=== PATIENT | female | born 1995 | race Caucasian/White ===

== ENCOUNTER 2021-03-02 14:21 | Emergency (ER) | payer BC ==
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
[2021-03-02 16:39] LABS: Appearance,Urine Clear (Clear); Bilirubin,Urine Negative (Negative); Blood,Urine Negative (Negative); Color,Urine Light Yellow; Glucose,Urine (UA) Negative (Negative); Ketones,Urine Negative (Negative); Leukocyte Esterase,Urine Negative (Negative); Nitrite,Urine Negative (Negative); Protein,Urine Negative (Negative); Specific Gravity,Urine 1.005 (1.001-1.035); Urobilinogen,Urine <2.0 mg/dL (<2.0)
[2021-03-02 17:01] VITALS: BP 108/77; PULSE 81; RESP 20; TEMP 98.3
== END 2021-03-02 17:16 | disposition home or self-care (01) ==
LOC: EC 14:21
DX: O9A.212 Injury, poisoning and certain other consequences of external causes complicating pregnancy, second trimester (principal); T75.4XXA Electrocution, initial encounter; W86.8XXA Exposure to other electric current, initial encounter; Z3A.17 17 weeks gestation of pregnancy
CPT/HCPCS: 76815; 81003; 93005; 99284

== ENCOUNTER 2021-08-04 10:08 | Inpatient (IN) | payer BC ==
[2021-08-04] MEDS ORDERED: LACTATED RINGERS 1,000 ML IV ONE (10:39)
[2021-08-04] MEDS ORDERED: CITRIC ACID-SODIUM CITRATE 15 ML CUP PO ONE (10:45)
[2021-08-04] MEDS ORDERED: ceFAZolin 3 GM in SODIUM CHLORIDE 0.9% 100 ML IVPB ONE (10:45)
[2021-08-04 10:53] LABS: Basophils % (A) 0 %; Eosinophils # (A) 0.1 k/uL (0-0.7); Eosinophils % (A) 2 %; HCT 34.2 % (34.0-46.0); HGB 11.9 gm/dL (11.4-16.0); Lymphocytes # (A) 1.2 k/uL (1.0-4.8); Lymphocytes % (A) 19 %; MCH 31.1 pg (25.0-35.0); MCHC 34.7 g/dL (31.0-37.0); MCV 89.5 fL (80.0-100.0); Mean Platelet Volume 9.8; Monocytes # (A) 0.3 k/uL (0-1.0); Monocytes % (A) 5 %; Neutrophils # (A) 4.7 k/uL (1.3-7.7); Neutrophils % (A) 73 %; Platelet Count 135 k/uL (150-450); RBC 3.82 m/uL (3.80-5.40); RDW 14.9 % (11.5-15.5); WBC 6.4 k/uL (3.8-10.6)
[2021-08-04] MEDS: LACTATED RINGERS 1,000 ML IV SCH ×5 (11:27→23:02)
[2021-08-04] MEDS ORDERED: NALBUPHINE 10 MG/ML (1 ML AMP) ONE (12:10)
[2021-08-04] MEDS ORDERED: ePHEDrine 50 MG/ML 1 ML AMP ONE (12:10)
[2021-08-04] MEDS ORDERED: ONDANSETRON 4 MG/2 ML VIAL ONE (12:10)
[2021-08-04] MEDS ORDERED: MORPHINE SULFATE (PF) 0.3 MG/0.3 ML SYR ONE (12:10)
[2021-08-04] MEDS ORDERED: OXYTOCIN 30 UNITS/500 ML NS BAG IV ONE (12:10)
[2021-08-04] MEDS ORDERED: KETOROLAC 15 MG/ML 1 ML VIAL ONE (12:10)
[2021-08-04] MEDS ORDERED: NALBUPHINE 10 MG/ML (1 ML AMP) IV PRN (12:39)
[2021-08-04] MEDS ORDERED: ONDANSETRON 4 MG/2 ML VIAL IVP PRN ×2 (12:39→13:15)
[2021-08-04] MEDS ORDERED: KETOROLAC 15 MG/ML 1 ML VIAL IVP PRN (12:39)
[2021-08-04] MEDS ORDERED: diphenhydrAMINE 50 MG/ML 1 ML VIAL IVP PRN ×3 (12:39→13:15)
[2021-08-04] MEDS ORDERED: MORPHINE SULFATE 2 MG/ML SYRINGE IVP PRN (12:39)
[2021-08-04] MEDS ORDERED: NALOXONE 0.4 MG/ML 1 ML VIAL IV PRN (12:39)
[2021-08-04] MEDS ORDERED: HYDROmorphone 2 MG TAB PO PRN ×2 (13:15)
[2021-08-04] MEDS ORDERED: KETOROLAC 30 MG/ML 1 ML VIAL IVP PRN (13:15)
[2021-08-04] MEDS ORDERED: LANOLIN CREAM 5 GM TUBE TOPICAL PRN (13:15)
[2021-08-04] MEDS ORDERED: SIMETHICONE 80 MG CHEWABLE PO PRN (13:15)
[2021-08-04] MEDS ORDERED: diphenhydrAMINE 25 MG CAP PO PRN (13:15)
[2021-08-04] MEDS ORDERED: OXYTOCIN 30 UNITS/500 ML NS 30 UNIT in SALINE 1 500ML.BAG IV SCH (13:15)
[2021-08-04] MEDS ORDERED: diphenhydrAMINE 50 MG CAP PO PRN (13:15)
[2021-08-04] MEDS ORDERED: ZOLPIDEM 5 MG TAB PO PRN (13:15)
[2021-08-04] MEDS ORDERED: METOCLOPRAMIDE 5 MG/ML 2 ML VIAL IVP PRN (13:15)
--- NOTE | 2021-08-04 13:23 | P.HPOB ---
History of Present Illness H&P Date: 08/04/21 Chief Complaint: 39-0/7 weeks, gestational diabetes, macrosomia the patient is a 25-year-old 1 para 0 admitted at 39-0/7 weeks as established by last menstrual period and confirmed by 12 week ultrasound. She is admitted for primary low-transverse section secondary to a diagnosis of gestational diabetes which her sugars been well controlled and testing has been reassuring. She was in the third trimester found to have a fetus growing at greater than the 90th percentile with an estimated weight greater than 4000 g approximately 1-1-1/2 weeks ago. Giving the statistics for potential shoulder dystocia or maternal injury as well, the decision was made to proceed with primary low-transverse section. Her was otherwise essentially uncomplicated aside from the gestational diabetes. At her initial anatomy ultrasound, there was a concern for possible ventricular septal defect which was not seen at echocardiogram. On labor and delivery, all signs reassuring with a category 1 heart rate tracing. Group B strep status is negative. Obstetrical history: 1 para 0 current statistics listed in history of present illness. EDC of 08/11/2021 was established by last menstrual period and confirmed by 12 week ultrasound. Laboratory workup demonstrates a blood type of B+ with a negative antibody screen. Rubella status is immune. The remainder of laboratory workup was within normal limits. Early Glucola was elevated and followed by an abnormal 3 hour glucose tolerance tests making the diagnosis of diabetes. Group B strep status is negative. Gynecologic history: Unremarkable with no history of any infections to include STDs. Review of Systems review of systems is confined to history of present illness. Past Medical History Past Medical History: No Reported History Additional Past Medical History / Comment(s): Gestational diabetes History of Any Multi-Drug Resistant Organisms: None Reported Past Surgical History: Tonsillectomy Past Anesthesia/Blood Transfusion Reactions: No Reported Reaction Past Psychological History: No Psychological Hx Reported Smoking Status: Never smoker Past Alcohol Use History: None Reported Past Drug Use History: None Reported - Past Family History Mother Family Medical History: No Reported History Medications and Allergies Home Medications Medication Instructions Recorded Confirmed Type Aspirin EC [Ecotrin Low Dose] 81 mg PO HS 03/02/21 08/04/21 History Fpt-Wcds-Gqekw Acid 1 cap PO HS 06/29/21 12/01/21 History [-U Capsule (formulary)] Allergies Allergy/AdvReac Type Severity Reaction Status Date / Time No Known Allergies Allergy Verified 08/04/21 10:29 Exam Vital Signs Temp Pulse Resp BP 08/04/21 10:32 98.7 F 91 16 139/83 Intake and Output 08/03/21 08/04/21 08/04/21 22:59 06:59 14:59 Other: Weight 134.263 kg general, this is a well-developed, moderately obese white female in no acute distress. Her heart has a regular rhythm and rate without murmur. Her lungs are clear to auscultation bilaterally in all viramontes. Her abdomen is gravid, nondistended, has normal active bowel sounds, is soft, nontender, and without any palpable masses aside from uterine fundus. Her extremities without any cyanosis, clubbing, or significant edema and are nontender to palpation bilaterally. Digital cervical exam in addition is deferred. Results Result Diagrams: 08/04/21 10:36 Abnormal Lab Results - Last 24 Hours (Table) 08/04/21 Range/Units 10:36 Plt Count 135 L (150-450) k/uL Assessment and Plan (1) Term Current Visit: Yes Status: Acute Code(s): Z34.90 - ENCNTR FOR SUPRVSN OF NO RMAL , UNSP, UNSP TRIMESTER SNOMED Code(s): 37546604 (2) Gestational diabetes Current Visit: Yes Status: Acute Code(s): O24.419 - GESTATIONAL DIABETES MELLITUS IN , UNSP CONTROL SNOMED Code(s): 98336533 (3) macrosomia in Current Visit: Yes Status: Acute Code(s): O36.60X0 - MATERNAL CARE FOR EXCESS GROWTH, UNSP TRIMESTER, UNSP SNOMED Code(s): 71023043 Plan: the patient is admitted for elective primary low-transverse section secondary to the diagnoses as outlined above. Risks and, occasions of been thoroughly discussed and she has understood and agreed to proceed.
--- NOTE | 2021-08-04 13:30 | P.OP ---
Date of Procedure: 08/04/21 Preoperative Diagnosis: #1. 39-0/7 weeks #2. Gestational diabetes #3. macrosomia, estimated weight greater than 4000 g Postoperative Diagnosis: same plus #4. Fibroid uterus Procedure(s) Performed: #1. Elective primary low-transverse section Anesthesia: spinal Surgeon: Mike Ames [employer] #1: Trini Smith Estimated Blood Loss (ml): 760 IV fluids (ml): 900 Urine output (ml): 200 Pathology: none sent Condition: stable Disposition: floor Operative Findings: the patient was taken the operating room where she was delivered of a viable 9 lbs. 8 oz. baby boy with Apgars of 8 at 1 minute and 8 at 5 minutes. The placenta was delivered manually, intact, and grossly normal with a grossly normal three-vessel cord. The uterus, tubes, and ovaries were entirely normal to inspection aside from 2 or 3 roughly 3 cm subserosal fibroids, one just above the lower uterine segment on the anterior portion and the one that was slightly larger on the posterior lower uterine segment. Description of Procedure: the patient was prepped and draped in usual fashion after spinal anesthesia was administered by the anesthesiologist. A Pfannenstiel incision was made and extended into the abdominal cavity without difficulty. The bladder peritoneum was elevated, incised, and reflected distally as there was a fibroid just above the intended site of the incision and it was felt safer to remove the bladder. A 2 cm incision was made in the transverse plane of the lower uterine segment to enter the uterus at which time clear fluid was noted. The incision was extended in both directions using the bandage scissors. The head was delivered up and through the incision where the nose and mouth were thoroughly suctioned. Remainder of the . Delivered onto the field where the cord was doubly clamped, cut, and the passed for resuscitative measures with weight and Apgars as noted above. A segment of cord was doubly clamped, cut, and set aside should cord gases become necessary. The placenta was delivered manually and intact as noted above. The uterus was exteriorized and the interior cavity of uterus swept of any remaining placental or membranous fragments. The margins from the uterine incision were grasped with Gu[place]upe clamps and the incision closed in 2 layers. The first layer was a running locking stitch of 0 chromic catgut from margin to margin followed by a running imbricating stitch of 0 chromic catgut from margin to margin. Hemostasis appeared to be excellent. The posterior cul-de-sac was then suctioned with a guard and the uterine and ovarian findings were as noted above with both anterior and posterior roughly 2-3 cm subserosal fibroids noted. The uterus was replaced within the abdominal cavity and the gutters were swept of any remaining blood, fluid, or clot. The incision was reexamined and any small points of bleeding made hemostatic with the Bovie. the muscle layer was examined and found to be hemostatic.The fascia was closed with 2 running stitches of 0 Vicryl proceeding from the lateral margins to the midpoint. The subcutaneous tissues wereirrigated, made hemostatic with the Bovie, and reapproximated with a running stitch of 30 plain catgut. The skin was retracted with a running subcuticular stitch of 4-0 Vicryl followed by half- inch Steri-Strips placed with Mastisol. Estimated blood loss for the case was approximately 760 mL. All sponge, instrument, needle counts were correct. There were no complications. The patient tolerated the procedure well and proceeded to the recovery room in stable condition. Both mother and are resting comfortably in recovery.
[2021-08-04] MEDS: ACETAMINOPHEN TAB 500 MG TAB PO SCH (23:00)
[2021-08-04] MEDS: SENNOSIDES-DOCUSATE SODIUM 1 EACH TAB PO SCH (23:00)
[2021-08-05] MEDS: ACETAMINOPHEN TAB 500 MG TAB PO SCH ×4 (04:50→23:32)
[2021-08-05 06:18] LABS: Basophils % (A) 0 %; Eosinophils # (A) 0.1 k/uL (0-0.7); Eosinophils % (A) 1 %; HCT 28.8 % (34.0-46.0); Lymphocytes # (A) 1.1 k/uL (1.0-4.8); Lymphocytes % (A) 16 %; MCH 30.9 pg (25.0-35.0); MCHC 34.5 g/dL (31.0-37.0); MCV 89.6 fL (80.0-100.0); Mean Platelet Volume 10.3; Monocytes # (A) 0.4 k/uL (0-1.0); Monocytes % (A) 6 %; Neutrophils % (A) 75 %; Platelet Count 121 k/uL (150-450); RBC 3.22 m/uL (3.80-5.40); WBC 6.7 k/uL (3.8-10.6)
--- NOTE | 2021-08-05 08:19 | P.PNOBGPC ---
Subjective - Subjective Interval history: the patient reports that nausea finally resolved late last night. Patient reports: Reports appetite normal, Reports voiding normally, Reports pain well controlled, Reports ambulating normally [place]: doing well Objective - Vital Signs Latest vital signs: Vital Signs Temp Pulse Resp BP Pulse Ox 08/05/21 04:00 98.3 F 84 16 134/82 97 08/05/21 00:00 98.2 F 85 16 116/72 98 08/04/21 22:59 16 08/04/21 21:00 16 98 08/04/21 20:00 98.1 F 73 16 125/70 98 08/04/21 19:00 16 08/04/21 17:39 99 08/04/21 17:00 16 08/04/21 16:00 98.3 F 81 16 118/62 99 08/04/21 15:39 16 08/04/21 14:50 74 16 114/58 08/04/21 14:00 71 16 112/55 08/04/21 13:45 71 16 112/55 98 08/04/21 13:39 16 99 08/04/21 13:30 78 16 127/58 08/04/21 13:15 97.2 F L 64 16 115/51 99 08/04/21 12:39 18 99 08/04/21 10:32 98.7 F 91 16 139/83 Intake and Output 08/04/21 08/05/21 08/05/21 22:59 06:59 14:59 Output Total 450 400 Balance -450 -400 Output: Urine 450 400 Uretheral ([place]) 150 Other: # Voids 1 - Exam Extremities: Present: normal Abdomen: Present: normal appearance, soft. Absent: distention, tenderness Incision: Present: normal, dry, intact Uterus: Present: normal, firm (the uterine fundus as tonic and appropriate tender at the umbilicus.) - Labs Labs: Abnormal Lab Results - Last 24 Hours (Table) 08/04/21 08/05/21 Range/Units 10:36 05:55 RBC 3.22 L (3.80-5.40) m/uL Hgb 10.0 L D (11.4-16.0) gm/dL Hct 28.8 L (34.0-46.0) % Plt Count 135 L 121 L (150-450) k/uL Assessment and Plan (1) Term Current Visit: Yes Status: Acute Code(s): Z34.90 - ENCNTR FOR SUPRVSN OF NORMAL , UNSP, UNSP TRIMESTER SNOMED Code(s): 90354492 (2) Gestational diabetes Current Visit: Yes Status: Acute Code(s): O24.419 - GESTATIONAL DIABETES MELLITUS IN , UNSP CONTROL SNOMED Code(s): 92179433 (3) macrosomia in Current Visit: Yes Status: Acute Code(s): O36.60X0 - MATERNAL CARE FOR EXCESS GROWTH, UNSP TRIMESTER, UNSP SNOMED Code(s): 64337418 (4) S/P section Current Visit: Yes Status: Acute Code(s): Z98.891 - HISTORY OF UTERINE SCAR FROM PREVIOUS SURGERY SNOMED Code(s): 579032445 Plan: continue routine postoperative and care. I would anticipate discharge home tomorrow pending no complications. I have strongly encouraged the patient and the hallways routinely.
[2021-08-05] MEDS: SENNOSIDES-DOCUSATE SODIUM 1 EACH TAB PO SCH ×2 (08:23→20:19)
--- NOTE | 2021-08-05 08:33 | P.PN ---
Progress Note - Text Progress Note Date: 08/05/21 Postoperative day 1 status post section under spinal anesthesia, and i ntrathecal morphine given for postoperative analgesia, patient doing well, there is no anesthesia related complications, Patient had no headache, vital signs stable , Assessment and plan= postop day 1 status post , doing well there is no anesthesia related complication. Patient was seen at 0707 today
[2021-08-05] MEDS: LACTATED RINGERS 1,000 ML IV SCH (09:21)
[2021-08-05 16:14] VITALS: RESP 16
[2021-08-05] MEDS: IBUPROFEN 600 MG TAB PO PRN (20:20)
[2021-08-06] MEDS: IBUPROFEN 600 MG TAB PO PRN ×2 (04:01→11:44)
[2021-08-06] MEDS: ACETAMINOPHEN TAB 500 MG TAB PO SCH (06:24)
[2021-08-06 08:21] VITALS: BP 132/76; PULSE 87; TEMP 98.3
[2021-08-06] MEDS: SENNOSIDES-DOCUSATE SODIUM 1 EACH TAB PO SCH (08:27)
--- NOTE | 2021-08-06 10:49 | P.DS ---
Providers Date of admission: 08/04/21 10:08 Expected date of discharge: 08/06/21 Attending physician: Mike Ames Primary care physician: Stated None - Discharge Diagnosis(es) (1) Term Current Visit: Yes Status: Acute (2) Gestational diabetes Current Visit: Yes Status: Acute (3) macrosomia in Current Visit: Yes Status: Acute (4) S/P section Current Visit: Yes Status: Acute Hospital Course: the patient is a 25-year-old 1 para 0 admitted at 39-0/7 weeks by good dating parameters. She is admitted for primary low-transverse section secondary to diagnosis of gestational diabetes with an estimated weight well over 4000 g 1-1/2 weeks prior to date of admission. Given the concerns for possible shoulder dystocia or other injury to both mother or , decision was made to proceed with elective primary section. Her was otherwise uncomplicated and all signs reassuring. Group B strep status was negative. She was taken the operating room where she was delivered in an incompetent fashion of a viable 9 lbs. 8 oz. baby boy with Apgars of 8 at 1 minute and 8 at 5 minutes. Her and postoperative courses were unremarkable with vital signs being stable and her temperature was afebrile throughout. She was deemed stable for discharge on and postoperative day #2 and was discharged home to follow-up in the office in 2 weeks for an incision check and 6 weeks routinely. Discharge instructions included calling for any significantly increased bleeding or foul-smelling lochia, significantly increased fever abdominal pain, perineal complaints, breast complaints, incisional complaints, or anything else that concerned her. She is additionally instructed to have nothing in the vagina for at least 6 weeks time to include intercourse. She was also instructed to do no heavy lifting over the same period of time and to abstain from any driving until off of all pain medications or 2 weeks' time, whichever came first. She understood all of her instructions and agrees to follow-up as noted above. Discharge medications included continue d vitamins as she has opted to breast-feed. She was additionally to use [id number] analgesic pain medications but was provided a prescription for Tylenol 3, 1-2 by mouth every 6 hours when necessary pain, #20 dispensed with no refills. Maternal blood type isB+ with a negative antibody screen and rubella status is immune. Discharge hemoglobin and hematocrit were 10.0 and 28.8 respectively. Procedures: #1. Elective primary low-transverse section Patient Condition at Discharge: Stable Plan - Discharge Summary New Discharge Prescriptions: No Action Thf-Zwqm-Scbrg Acid [-U Capsule (formulary)] 1 cap PO HS Aspirin EC [Ecotrin Low Dose] 81 mg PO HS Discharge Medication List Aspirin EC [Ecotrin Low Dose] 81 mg PO HS 03/02/21 [History] Eoa-Hlhd-Hbeca Acid [-U Capsule (formulary)] 1 cap PO HS 03/02/21 [History] Follow up Appointment(s)/Referral(s): Mike Ames MD [STAFF PHYSICIAN] - 2 Weeks Discharge Disposition: HOME SELF-CARE
== END 2021-08-06 14:05 | disposition home or self-care (01) | DRG 788 ==
LOC: 4FBP 10:08
PROVIDERS: ADMIT Obstetrics & Gynecology; ATTEND Obstetrics & Gynecology
PROC: 10D00Z1 Extraction of Products of Conception, Low, Open Approach (ICD-10-PCS; principal; 2021-08-04 12:00)
DX: O24.429 Gestational diabetes mellitus in childbirth, unspecified control (principal); Z20.822 Contact with and (suspected) exposure to COVID-19; O34.13 Maternal care for benign tumor of corpus uteri, third trimester; D25.2 Subserosal leiomyoma of uterus; O36.63X0 Maternal care for excessive fetal growth, third trimester, not applicable or unspecified; Z37.0 Single live birth; Z3A.39 39 weeks gestation of pregnancy
CPT/HCPCS: 85025; 86850; 86900; 86901

== ENCOUNTER → 2023-04-18 | Outpatient (CLI) | payer OTHER | END | disposition home or self-care (01) | LOC: LABWHC1 10:20 | PROVIDERS: ATTEND Family Medicine | DX: Z01.84 Encounter for antibody response examination (principal) | CPT/HCPCS: 36415 ==

== ENCOUNTER → 2024-03-06 | Outpatient (CLI) | payer OTHER ==
[2024-03-06 15:25] LABS: HCT 40.5 % (37.2-46.3); HGB 13.6 g/dL (12.0-15.0); MCH 29.4 pg (27.0-32.0); MCHC 33.6 g/dL (32.0-37.0); MCV 87.5 FL (80.0-97.0); Mean Platelet Volume 9.6 FL (9.5-12.2); NRBC Per 100 WBC 0 X 10*3/uL (0.00-0.01); Platelet Count 192 X 10*3/uL (140-440); RBC 4.63 X 10*6/uL (4.10-5.20); RDW 13.3 % (11.5-14.5); WBC 5.05 X 10*3/uL (4.50-10.00)
[2024-03-06 15:26] LABS: Basophils # (A) 0.01 X 10*3/uL (0.00-0.10); Basophils % (A) 0.2 %; Lymphocytes # (A) 1.56 X 10*3/uL (0.90-5.00); Lymphocytes % (A) 30.9 %; Monocytes # (A) 0.35 X 10*3/uL (0.20-1.00); Monocytes % (A) 6.9 %; Neutrophils # (A) 3.01 X 10*3/uL (1.80-7.70); Neutrophils % (A) 59.6 %
[2024-03-06 15:46] LABS: ALT 43 U/L (8-44); AST 24 U/L (13-35); Albumin 4.4 g/dL (3.8-4.9); Albumin/Globulin Ratio 1.91 Ratio (1.60-3.17); Alkaline Phosphatase 47 U/L (41-126); BUN/Creat Ratio 14.75 Ratio (12.00-20.00); Blood Urea Nitrogen 11.8 mg/dL (9.0-27.0); Calcium 9.4 mg/dL (8.7-10.3); Carbon Dioxide 24.3 mmol/L (21.6-31.8); Chloride 104 mmol/L (96-109); Globulin 2.3 g/dL (1.6-3.3); Glucose 148 mg/dL (70-110); LDL Cholesterol,Calculated 101.6 mg/dL (0.0-131.0); Potassium 4.4 mmol/L (3.5-5.5); Sodium 141 mmol/L (135-145); Total Bilirubin 0.9 mg/dL (0.3-1.2); Total Protein 6.7 g/dL (6.2-8.2)
== END | disposition home or self-care (01) ==
LOC: LABWHC1 10:50
PROVIDERS: ATTEND Family Medicine
DX: Z00.00 Encounter for general adult medical examination without abnormal findings (principal); E66.9 Obesity, unspecified
CPT/HCPCS: 36415; 80053; 80061; 82306; 83036; 84443; 85025; 86480